=== PATIENT | female | born 1985 | race Two or more races ===

== ENCOUNTER 2018-03-18 07:18 | Emergency (ER) | payer SELFPAY ==
[2018-03-18 07:36] VITALS: TEMP 99.1; BMI 26.4
--- NOTE | 2018-03-18 08:10 | PDOC ---
Attending Attestation - Resident Resident Name: Temitope Tidwell - ED Attending Attestation I have performed the following: I have examined & evaluated the patient, The case was reviewed & discussed with the resident, I agree w/resident's findings & plan, Exceptions are as noted - HPI HPI: 03/18/18 08:53 Ms Cross is a 32 yo F with no past medical history who presents to the ER with a complaint of left arm numbness/pain Pt states she awoke with left arm numbness this morning Because her symptoms persisted she became concerned about having a stroke (as she also became nauseous and vomited x 1) She also reported pinching chest pain No shortness of breath No focal weakness No headache currently (pt has intermittent headaches) No known risk factors - DM, HTN, HLD, family history, lupus, other rheumatological disorder Pt does intermittently smoke - Physicial Exam PE: 03/18/18 08:58 GENERAL: The patient is in no acute distress. LUNGS: Breath sounds equal, clear to auscultation bilaterally. No wheezes, and no crackles. HEART: Regular rate and rhythm, normal S1 and S2 without murmur, rub or gallop. ABDOMEN: Soft, nontender, normoactive bowel sounds. No guarding, no rebound. EXTREMITIES: Normal range of motion, no edema. NEUROLOGICAL: Cranial nerves II through XII grossly intact. Normal speech. No focal neurological deficits of weakness or numbness MUSCULOSKELETAL: Back non-tender to palpation, no CVA tenderness SKIN: Warm, Dry, normal turgor, no rashes or lesions noted. - Medical Decision Making 03/18/18 09:10 Pt presents to the ER with left arm numbness and pain which has largely resolved likely due to peripheral nerve compression while sleeping unlikely CVA Will do basic labs Will plan to d/c home Pt asked to follow up with PMD Laboratory Tests 03/18/18 03/18/18 03/18/18 08:45 08:45 08:45 WBC 8.2 Hgb 14.0 Hct 40.9 Plt Count 307 BUN 9 Creatinine 0.6 Creatine Kinase 116 Troponin I < 0.02 Clinical impression: left arm numbness, initial presentation 03/20/18 08:20
--- NOTE | 2018-03-18 08:15 | PDOC ---
History of Present Illness - General Chief Complaint: Weakness Stated Complaint: NUMBNESS/WEAKNESS Time Seen by Provider: 03/18/18 07:48 History Source: Patient - History of Present Illness Initial Comments: 03/18/18 08:15 31 year old female with no reported PMH presents w/arm numbness and intermittent chest pain. Chest pain has been occurring for the last 2-3 weeks and is intermittent, "stabbing" localized to her L chest and has no identifiable triggering/relieving factors. Denies any palpitations, shortness of breath, lightheadedness. Notes one episode of NBNB vomiting this morning. Numbness was noted upon waking up this morning, no prior h/o numbness. Was able to shower, dress, drive to hospital. States she decided to come to the Emergency Department this morning following an internet search of her symptoms and concern she was having a heart attack. Patient has limited primary care and states the last time she was evaluated by a physician was following her daughter's 1-1/2 years previous. No known family cardiac history. Former smoker. Weekly marijuana use. NKDA Surgical: denies Social: former 4-5 cigarettes daily for 5+ years, weekly marijuana, social alcohol. PMD: None - will refer to resident clinic. Past History - Past Medical History Allergies/Adverse Reactions: Allergies Allergy/AdvReac Type Severity Reaction Status Date / Time No Known Allergies Allergy Verified 03/18/18 07:25 Home Medications: Ambulatory Orders NK [No Known Home Medication] 03/18/18 COPD: No DVT: No - Immunization History Immunization Up to Date: Yes - Suicide/Smoking/Psychosocial Hx Smoking History: Current some day smoker Information on smoking cessation initiated: No Hx Alcohol Use: No Drug/Substance Use Hx: Yes (marijuana) Substance Use Type: Marijuana Review of Systems - Review of Systems Constitutional: No: Chills, Fever HEENTM: No: Blurred Vision, Double Vision Respiratory: No: Cough, Shortness of Breath Cardiac (ROS): No: Chest Pain, Lightheadedness, Palpitations, Syncope ABD/GI: Yes: Nausea, Vomiting. No: Constipated, Diarrhea *Physical Exam - Vital Signs Last Vital Signs Temp Pulse Resp BP Pulse Ox 99.1 F 72 18 124/79 98 03/18/18 07:25 03/18/18 07:25 03/18/18 07:25 03/18/18 07:25 03/18/18 07:25 - Physical Exam General Appearance: Yes: Nourished, Appropriately Dressed HEENT: positive: EOMI, ALLAN, Normal Voice, Hearing Grossly Normal Neck: positive: Trachea midline, Supple. negative: Lymphadenopathy (R), Lymphadenopathy (L) Respiratory/Chest: positive: Lungs Clear, Normal Breath Sounds Cardiovascular: positive: S1, S2, Systolic Murmur Extremity: positive: Normal Capillary Refill, Normal Inspection, Other (B/L UE full ROM, 2+ radial pulses, sensation and proprioception intact) ED Treatment Course - LABORATORY CBC & Chemistry Diagram: 03/18/18 08:45 03/18/18 08:45 Medical Decision Making - Medical Decision Making 03/18/18 08:22 31 year old female with chest pain and arm numbness. Neurologically intact, B/ L UE are NVI, full ROM, no sensation/proprioception defects appreciated; asymptomatic systolic murmur on PE. Frontal diagnosis: r/o ACS, peripheral nerve compression, anxiety, low clinical suspicion for CVA/TIA given patient's history, age, minimal risk factors. Will obtain EKG, CBC/CMP, Troponin (-)1. Reassess. 03/18/18 09:36 ECG shows NSR, HR 67, flattened T wave in precordial leads V1-V2 and TWI V3,V6. No LORIE/STD. Non-ischemic ECG. No prior ECG in EMR. 03/18/18 10:10 CBC, CMP Troponin (-) x1 Patient resting comfortably, symptoms resolved. Will give referral to establish primary care, return precautions and d/c home. Patient counseled extensively on importance of establishing primary care. Clinical Impression: L arm numbness - resolved I discussed the physical exam findings, ancillary test results and final diagnoses with the patient. I answered all of the patient's questions. The patient was satisfied with the care received and felt comfortable with the discharge and treatment plan. The patient will return to the ED with any new, persistent or worsening symptoms. *DC/Admit/Observation/Transfer Diagnosis at time of Disposition: Chest pain, Numbness - Discharge Dispostion Disposition: HOME Condition at time of disposition: Good Decision to Admit order: No - Referrals Referrals: Daniel Francis MD [Staff Physician] - - Patient Instructions Printed Discharge Instructions: DI for Anxiety -- Adult Additional Instructions: You were evaluated today for your chest pain and numbness. All of your labs and EKG showed no concerning findings and at this time you are safe for discharge home. Please make an appointment with the [facility] (contact information provided) to establish primary care. Request an appointment to be evaluated within the next 2-3 days. You can take Tylenol for your pain up to 3000 mg daily. Return to the Emergency Department for any new/worsening/concerning symptoms including return of numbness or chest pain. - Post Discharge Activity
[2018-03-18 09:01] LABS: BASO % 0.3 % (0-2.0); EOS % 0.9 % (0-4.5); HEMATOCRIT 40.9 % (32.4-45.2); LYMPH % 11.5 % (8-40); MCHC 34.4 g/dl (32.0-36.0); MEAN CELL VOLUME 93.3 fl (80-96); MEAN PLT VOLUME 7.8 fl (7.5-11.1); MONO % 4.1 % (3.8-10.2); NEUT % 83.2 % (42.8-82.8); PLATELET COUNT 307 K/MM3 (134-434); RBC 4.38 M/mm3 (3.60-5.2); WHITE BLOOD COUNT 8.2 K/mm3 (4.0-10.0)
[2018-03-18 09:22] LABS: ALBUMIN 4.1 g/dl (3.4-5.0); ALK PHOS 85 U/L (45-117); ANION GAP 4 MMOL/L (8-16); BILIRUBIN,TOTAL 0.4 mg/dL (0.2-1); BLOOD UREA NITROGEN 9 mg/dL (7-18); CALCIUM 8.8 mg/dL (8.5-10.1); CHLORIDE 104 mmol/L (98-107); CO2 30 mmol/L (21-32); CREATININE 0.6 mg/dL (0.55-1.3); GLUCOSE,RANDOM 104 mg/dL (74-106); POTASSIUM 3.6 mmol/L (3.5-5.1); SGOT/AST 20 U/L (15-37); SGPT/ALT 21 U/L (13-61); SODIUM 138 mmol/L (136-145)
--- NOTE | 2018-03-18 18:08 | EKG ---
Test Reason : Blood Pressure : / mmHG Vent. Rate : 067 BPM Atrial Rate : 067 BPM P-R Int : 136 ms QRS Dur : 072 ms QT Int : 428 ms P-R-T Axes : 029 010 -02 degrees QTc Int : 452 ms NORMAL SINUS RHYTHM WITH SINUS ARRHYTHMIA NONSPECIFIC T WAVE ABNORMALITY ABNORMAL ECG NO PREVIOUS ECGS AVAILABLE Confirmed by MULUGETA ROSS, RAJAN ([id number]) on 03/18/2018 6:08:21 PM Referred By: Confirmed By:RAJAN DALAL MD
== END 2018-03-18 10:17 | disposition home or self-care (01) ==
LOC: EDBD 07:18 → JER 07:18
DX: R51 Headache (principal); R07.89 Other chest pain; R20.0 Anesthesia of skin
CPT/HCPCS: 36415; 80053; 82550; 84484; 85025; 93005; 93010; 99285-25